=== PATIENT | male | born 1945 | race Caucasian/White ===

== ENCOUNTER 2017-04-20 11:12 | Emergency (ER) | payer OTHER, MEDICARE ==
[~2017-04-20] VITALS: Ht 185.4 cm; Wt 83.9 kg
--- OUTSIDE RECORDS SUMMARY | 2017-04-20 11:19 | XMS REPORT ---
Author Author Amos Craig [facility] Address [address] [place], [place] [id number] Care Team Providers Care Planning Management It Specialist Name Role Phone Amos Craig PCP Unavailable Allergies and Adverse Reactions Name Reaction Notes NO KNOWN DRUG ALLERGIES Plan of Treatment Not available. Medications Active Name Start Date Estimated Completion Date SIG Comments diltiazem HCl Oral capsule, extended release 240 mg take 1 capsule (240 mg) by oral route once daily triamterene-hydrochlorothiazid Oral tablet 37.5-25 mg take 1 tablet by oral route once daily pravastatin Oral tablet 40 mg take 1 tablet (40 mg) by oral route once daily warfarin Oral tablet 4 mg take 1 tablet (4 mg) by oral route once daily niacin Oral tablet 500 mg take 1 tablet (500 mg) by oral route once daily B Complex Oral tablet extended release take 1 tablet by oral route daily Centrum Oral tablet, chewable 3,500-18-0.4 unit-mg-mg chew 1 tablet by oral route daily potassium chloride oral tablet extended release 10 mEq take 1 tablet ( 10 meq) by oral route 2 times per day with food carbidopa-levodopa oral tablet 25-100 mg 01/29/2014 take 1 tablet by oral route once a day at bedtime for 30 days sertraline oral tablet 50 mg 02/25/2014 TAKE ONE & ONE-HALF TABLETS BY MOUTH ONCE DAILY carbidopa-levodopa oral tablet 25-100 mg 02/25/2014 take 1 tablet by oral route once a day at bedtime for 30 days carbidopa-levodopa oral tablet 25-100 mg 03/19/2014 take 1 tablet by oral route once a day at bedtime for 30 days sertraline oral tablet 50 mg 04/03/2014 TAKE ONE & ONE-HALF TABLETS BY MOUTH ONCE DAILY carbidopa-levodopa oral tablet 25-100 mg 04/09/2014 take 1 tablet by oral route once a day at bedtime for 30 days sertraline oral tablet 50 mg 05/02/2014 TAKE ONE & ONE-HALF TABLETS BY MOUTH ONCE DAILY sertraline oral tablet 50 mg 06/04/2014 TAKE ONE & ONE-HALF TABLETS BY MOUTH ONCE DAILY carbidopa-levodopa oral tablet 25-100 mg 06/18/2014 take 1 tablet by oral route once a day at bedtime for 30 days sertraline oral tablet 50 mg 07/03/2014 TAKE ONE & ONE-HALF TABLETS BY MOUTH ONCE DAILY carbidopa-levodopa oral tablet 25-100 mg 08/25/2014 take 1 tablet by oral route once a day at bedtime for 30 days carbidopa-levodopa oral tablet 25-250 mg 09/12/2014 take 1 tablet by oral route once a day (at bedtime) sertraline oral tablet 50 mg 09/28/2014 TAKE ONE & ONE-HALF TABLETS BY MOUTH ONCE DAILY carbidopa-levodopa oral tablet 25-250 mg 11/13/2014 TAKE ONE TABLET BY MOUTH ONCE DAILY AT BEDTIME tramadol oral tablet 50 mg 12/11/2014 take 1 tablet (50 mg) by oral route every 4-6 hours as needed albuterol sulfate inhalation HFA aerosol inhaler 90 mcg/actuation 12/11/2014 inhale 1 - 2 puffs by inhalation route every 6 hours as needed Name Start Date Expiration Date SIG Comments meloxicam oral tablet 15 mg 07/28/2013 10/26/2013 take 1 tablet (15 mg) by oral route once daily for 30 days guaifenesin oral tablet extended release 600 mg 07/28/2013 08/27/2013 take 1 tablet (600 mg) by oral route every 12 hours for 30 days fluticasone nasal spray,suspension 50 mcg/actuation 07/28/2013 spray 2 sprays (100 mcg) in each nostril by intranasal route once daily as needed tizanidine oral tablet 4 mg 08/15/2013 take 1 tablet (4 mg) by oral route at bedtime for 2 weeks carbidopa-levodopa Oral tablet 25-100 mg 01/12/2014 02/11/2014 take 1 tablet by oral route once a day at bedtime for 30 days sertraline oral tablet 50 mg 01/12/2014 02/11/2014 take 1 and 1/2 tablet (75 mg) by oral route once daily for 30 days Discontinued Name Start Date Discontinued Date SIG Comments lisinopril Oral tablet 20 mg 07/28/2013 take 1 tablet (20 mg) by oral route once daily caused fatigue Aleve Oral tablet 220 mg 07/28/2013 take 1 tablet (220 mg) by oral route every 12 hours as needed Changed to Meloxicam Problem List Description Status Onset Atrial Fibrillation Active Back pain Active Hypertension Active Atrial fibrillation with controlled ventricular response Active 12/12/2014 Vital Signs Date Time BP-Sys(mm[Hg] BP-Shahrzad(mm[Hg]) HR(bpm) RR(rpm) Temp WT HT HC BMI BSA BMI Percentile O2 Sat(%) 12/11/2014 3:27:00 PM 135 mmHg 70 mmHg 82 bpm 18 rpm 97.6 F 181 lbs 73 in 23.88 kg/m2 2.06 m2 96 % 09/12/2014 3:54:00 PM 120 mmHg 80 mmHg 97 bpm 20 rpm 97.9 F 183 lbs 73 in 24.1437 kg/m 2.0677 m 91 % 06/16/2014 10:55:00 AM 150 mmHg 90 mmHg 99 bpm 18 rpm 97.4 F 183 lbs 73 in 24.14 kg/m2 2.07 m2 98 % 07/28/2013 9:34:00 AM 142 mmHg 80 mmHg 90 bpm 20 rpm 98.3 F 178 lbs 73 in 23.484 kg/m 2.0393 m 98 % 08/30/2012 10:55:00 AM 128 mmHg 62 mmHg 70 bpm 18 rpm 98.2 F 183 lbs 73 in 24.14 kg/m2 2.07 m2 Social History Name Description Comments Tobacco Former smoker No Alcohol Use History of Procedures Date Ordered Description Order Status 09/18/2010 12:00 AM SPECIMEN HANDLING OFFICE-LAB Reviewed 06/16/2014 12:00 AM COMPLETE CBC W/AUTO DIFF WBC Returned 06/16/2014 12:00 AM COMPREHEN METABOLIC PANEL Returned 06/16/2014 12:00 AM LIPID PANEL Returned 11/15/2010 12:00 AM SPECIMEN HANDLING OFFICE-LAB Reviewed 12/04/2010 12:00 AM SPECIMEN HANDLING OFFICE-LAB Reviewed 03/12/2011 12:00 AM SPECIMEN HANDLING OFFICE-LAB Reviewed Results Summary Data and Description Results 06/17/2014 11:45 AM TRIGLYCERIDES 89.0 mg/dLCHOLESTEROL 170.0 mg/dLHDL 51.0 mg /dLLDL (CALC) 101.0 mg/dLWBC 9.8 RBC 5.03 HGB 16.50 g/dLHCT 47.30 %MCV 94.0 fLMCH 32.80 pgMCHC 34.90 g/dLRDW CV 14.50 %MPV 9.90 fLPLT 244 %NEUT 63.80 %% LYMP 22.90 %%MONO 10.90 %%EOS 2.0 %%BASO 0.40 %#NEUT 6.25 #LYMP 2.25 #MONO 1.07 #EOS 0.20 #BASO 0.04 GLUCOSE 103.0 mg/dLSODIUM 142.0 mmol/LPOTASSIUM 4.40 mmol/ LCHLORIDE 106.0 mmol/LCO2 25.0 mmol/LBUN 16.0 mg/dLCREATININE 1.10 mg/dLSGOT/ AST 23.0 IU/LSGPT/ALT 24.0 IU/LALK PHOS 92.0 IU/LTOTAL PROTEIN 7.80 g/dLALBUMIN 4.30 g/dLTOTAL BILI 0.60 mg/dLCALCIUM 9.90 mg/dLeGFR 60 History Of Immunizations Not available. History of Past Illness Name Date of Onset Comments Atrial Fibrillation Back pain due to"ran over as a child" and a " defect" Hypertension Atrial fibrillation with controlled ventricular response 12/12/2014 DOT Oct 03 2010 12:50PM Laboratory Examination Nov 15 2010 11:46AM DOT Dec 04 2010 9:24AM DOT Mar 12 2011 10:20AM DOT Aug 30 2012 10:57AM Back Pain Jul 28 2013 9:38AM Hypertension Jul 28 2013 9:38AM Allergic Rhinitis Jul 28 2013 9:38AM Left shoulder pain Jun 16 2014 10:57AM Back pain, thoracic Jun 16 2014 10:57AM Screening for ischemic heart disease Jun 16 2014 10:57AM Cardiac arrhythmia Jun 16 2014 10:57AM DOT Sep 12 2014 3:57PM Impacted [employer] Sep 20 2014 12:44PM Back pain Dec 11 2014 3:28PM Hypertension Dec 11 2014 3:28PM Atrial fibrillation with controlled ventricular response Dec 11 2014 3:28PM Payers Insurance Name Company Name Plan Name Plan Number Policy Number Policy Group Number Start Date Medicare Part A Medicare Part A [id number] Friday, 2010 [facility] [id number] Friday, September 12, 2014 [employer] [id number] N/A History of Encounters Visit Date Visit Type Provider 12/11/2014 Office visit Ignacio Soto EVALUATION MANAGER 09/12/2014 Office visit Ignacio Soto EVALUATION MANAGER 09/12/2014 Office visit Ignacio Soto EVALUATION MANAGER 06/16/2014 Office visit Ignacio Soto EVALUATION MANAGER 07/28/2013 Office visit Amos Craig DO 08/30/2012 Office visit Amos Craig DO 03/12/2011 Laboratory Niko Perkins EVALUATION MANAGER 12/04/2010 Laboratory Niko Perkins EVALUATION MANAGER 11/15/2010 Laboratory Niko Perkins EVALUATION MANAGER 09/18/2010 Laboratory Niko Perkins EVALUATION MANAGER
--- OUTSIDE RECORDS SUMMARY | 2017-04-20 11:20 | XMS REPORT ---
Author Author Amos Craig [facility] Address [address] [place], [place] [id number] Care Team Providers Care Video Poker Floorman Name Role Phone Amos Craig PCP Unavailable [...] TABLET BY MOUTH ONCE DAILY AT BEDTIME albuterol sulfate inhalation HFA aerosol inhaler 90 mcg/actuation 12/11/2014 inhale 1 - 2 puffs by inhalation route every 6 hours as needed carbidopa-levodopa oral tablet 25-250 mg 01/22/2015 TAKE ONE TABLET BY MOUTH ONCE DAILY AT BEDTIME tramadol oral tablet 50 mg 01/29/2015 take 1 tablet (50 mg) by oral route every 4-6 hours as needed carbidopa-levodopa oral tablet 25-250 mg 02/05/2015 TAKE ONE TABLET BY MOUTH ONCE DAILY AT BEDTIME Name Start Date Expiration Date SIG Comments [...] Description Status Onset Atrial Fibrillation Active Back Pain Active Hypertension Active Atrial fibrillation with controlled ventricular response Active 12/12/2014 Vital Signs Date Time BP-Sys(mm[Hg] BP-Shahrzad(mm[Hg]) HR(bpm) RR(rpm) Temp WT HT HC BMI BSA BMI Percentile O2 Sat(%) 02/05/2015 9:31:00 AM 120 mmHg 70 mmHg 85 bpm 18 rpm 97.8 F 177 lbs 73 in 23.35 kg/m2 2.03 m2 97 % 12/11/2014 3:27:00 PM 135 mmHg 70 mmHg 82 bpm 18 rpm 97.6 F 181 lbs 73 in 23.8798 kg/m 2.0564 m 96 % 09/12/2014 3:54:00 PM 120 mmHg 80 mmHg 97 bpm 20 rpm 97.9 F 183 lbs 73 in 24.14 kg/m2 2.07 m2 91 % 06/16/2014 10:55:00 AM 150 mmHg 90 mmHg 99 bpm 18 rpm 97.4 F 183 lbs 73 in 24.1437 kg/m 2.0677 m 98 % 07/28/2013 9:34:00 AM 142 mmHg 80 mmHg 90 bpm 20 rpm 98.3 F 178 lbs 73 in 23.48 kg/m2 2.04 m2 98 % 08/30/2012 10:55:00 AM 128 mmHg 62 mmHg 70 bpm 18 rpm 98.2 F 183 lbs 73 in 24.1437 kg/m 2.0677 m Social History Name Description Comments Tobacco Former [...] Date of Onset Comments Atrial Fibrillation Back Pain due to"ran over as a child" and [...] controlled ventricular response Dec 11 2014 3:28PM Lesion of nose Feb 05 2015 9:32AM Payers Insurance Name Company Name Plan Name Plan Number Policy Number Policy Group Number Start Date Medicare Part A Medicare Part A [id number] Friday, 2010 [facility] [id number] Friday, September 12, 2014 [employer] [id number] N/A History of Encounters Visit Date Visit Type Provider 02/05/2015 Office visit Ignacio Soto APRN 12/11/2014 Office visit Ignacio Soto APRN 09/12/2014 Office visit Ignacio Soto APRN 09/12/2014 Office visit Ignacio Soto METAL HANGING HELPER 06/16/2014 Office visit Ignacio Soto METAL HANGING HELPER 07/28/2013 Office visit Amos Craig DO 08/30/2012 Office visit Amos Craig DO 03/12/2011 Laboratory Niko Perkins METAL HANGING HELPER 12/04/2010 Laboratory Niko Perkins METAL HANGING HELPER 11/15/2010 Laboratory Niko Perkins METAL HANGING HELPER 09/18/2010 Laboratory Niko Perkins METAL HANGING HELPER
--- OUTSIDE RECORDS SUMMARY | 2017-04-20 11:20 | XMS REPORT ---
Author Author Ignacio Soto [facility] Address [address] [place], [place] [id number] Care Team Providers Care Tax Form Preparer Name Role Phone Ignacio Soto PCP Allergies and Adverse Reactions Name Reaction Notes NO KNOWN DRUG ALLERGIES Plan of Treatment Not available. Medications Active Name Start Date Estimated Completion Date SIG Comments diltiazem HCl 240 mg oral capsule, extended release take 1 capsule (240 mg) by oral route once daily triamterene-hydrochlorothiazid 37.5-25 mg oral tablet take 1 tablet by oral route once daily pravastatin 40 mg oral tablet take 1 tablet (40 mg) by oral route once daily warfarin 4 mg oral tablet take 1 tablet (4 mg) by oral route once daily niacin 500 mg oral tablet take 1 tablet (500 mg) by oral route once daily B Complex Oral tablet extended release take 1 tablet by oral route daily Centrum 3,500-18-0.4 unit-mg-mg oral tablet,chewable chew 1 tablet by oral route daily potassium chloride 10 mEq oral tablet extended release take 1 tablet ( 10 meq) by oral route 2 times per day with food carbidopa-levodopa 25-100 mg oral tablet 01/29/2014 take 1 tablet by oral route once a day at bedtime for 30 days sertraline 50 mg oral tablet 02/25/2014 TAKE ONE & ONE-HALF TABLETS BY MOUTH ONCE DAILY carbidopa-levodopa 25-100 mg oral tablet 02/25/2014 take 1 tablet by oral route once a day at bedtime for 30 days carbidopa-levodopa 25-100 mg oral tablet 03/19/2014 take 1 tablet by oral route once a day at bedtime for 30 days sertraline 50 mg oral tablet 04/03/2014 TAKE ONE & ONE-HALF TABLETS BY MOUTH ONCE DAILY carbidopa-levodopa 25-100 mg oral tablet 04/09/2014 take 1 tablet by oral route once a day at bedtime for 30 days sertraline 50 mg oral tablet 05/02/2014 TAKE ONE & ONE-HALF TABLETS BY MOUTH ONCE DAILY sertraline 50 mg oral tablet 06/04/2014 TAKE ONE & ONE-HALF TABLETS BY MOUTH ONCE DAILY carbidopa-levodopa 25-100 mg oral tablet 06/18/2014 take 1 tablet by oral route once a day at bedtime for 30 days sertraline 50 mg oral tablet 07/03/2014 TAKE ONE & ONE-HALF TABLETS BY MOUTH ONCE DAILY carbidopa-levodopa 25-100 mg oral tablet 08/25/2014 take 1 tablet by oral route once a day at bedtime for 30 days carbidopa-levodopa 25-250 mg oral tablet 09/12/2014 take 1 tablet by oral route once a day (at bedtime) carbidopa-levodopa 25-250 mg oral tablet 11/13/2014 TAKE ONE TABLET BY MOUTH ONCE DAILY AT BEDTIME albuterol sulfate 90 mcg/actuation inhalation HFA aerosol inhaler 12/11/2014 inhale 1 - 2 puffs by inhalation route every 6 hours as needed carbidopa-levodopa 25-250 mg oral tablet 01/22/2015 TAKE ONE TABLET BY MOUTH ONCE DAILY AT BEDTIME carbidopa-levodopa 25-250 mg oral tablet 02/05/2015 TAKE ONE TABLET BY MOUTH ONCE DAILY AT BEDTIME carbidopa-levodopa 25-250 mg oral tablet 03/12/2015 TAKE ONE TABLET BY MOUTH ONCE DAILY AT BEDTIME carbidopa-levodopa 25-250 mg oral tablet 04/02/2015 TAKE ONE TABLET BY MOUTH ONCE DAILY AT BEDTIME sertraline 50 mg oral tablet 04/02/2015 TAKE ONE & ONE-HALF TABLETS BY MOUTH ONCE DAILY carbidopa-levodopa 25-250 mg oral tablet 04/30/2015 TAKE ONE TABLET BY MOUTH ONCE DAILY AT BEDTIME carbidopa-levodopa 25-250 mg oral tablet 05/21/2015 TAKE ONE TABLET BY MOUTH ONCE DAILY AT BEDTIME carbidopa-levodopa 25-250 mg oral tablet 06/18/2015 TAKE ONE TABLET BY MOUTH ONCE DAILY AT BEDTIME carbidopa-levodopa 25-250 mg oral tablet 08/27/2015 TAKE ONE TABLET BY MOUTH ONCE DAILY AT BEDTIME carbidopa-levodopa 25-250 mg oral tablet 09/24/2015 TAKE ONE TABLET BY MOUTH ONCE DAILY AT BEDTIME sertraline 50 mg oral tablet 10/02/2015 TAKE ONE & ONE-HALF TABLETS BY MOUTH ONCE DAILY carbidopa-levodopa 25-250 mg oral tablet 10/22/2015 TAKE ONE TABLET BY MOUTH ONCE DAILY AT BEDTIME tramadol 50 mg oral tablet 11/09/2015 take 1 tablet (50 mg) by oral route every 4-6 hours as needed Name Start Date Expiration Date SIG Comments meloxicam 15 mg oral tablet 07/28/2013 10/26/2013 take 1 tablet (15 mg) by oral route once daily for 30 days guaifenesin 600 mg oral tablet extended release 07/28/2013 08/27/2013 take 1 tablet (600 mg) by oral route every 12 hours for 30 days fluticasone 50 mcg/actuation nasal spray,suspension 07/28/2013 spray 2 sprays (100 mcg) in each nostril by intranasal route once daily as needed tizanidine 4 mg oral tablet 08/15/2013 take 1 tablet (4 mg) by oral route at bedtime for 2 weeks carbidopa-levodopa 25-100 mg oral tablet 01/12/2014 02/11/2014 take 1 tablet by oral route once a day at bedtime for 30 days sertraline 50 mg oral tablet 01/12/2014 02/11/2014 take 1 and 1/2 tablet (75 mg) by oral route once daily for 30 days Discontinued Name Start Date Discontinued Date SIG Comments lisinopril 20 mg oral tablet 07/28/2013 take 1 tablet (20 mg) by oral route once daily caused fatigue Aleve 220 mg oral tablet 07/28/2013 take 1 tablet (220 mg) by oral route every 12 hours as needed Changed to Meloxicam Problem List Description Status Onset Atrial Fibrillation Active Back Pain Active Hypertension Active Atrial fibrillation with controlled ventricular response Active 12/12/2014 COPD (chronic obstructive pulmonary disease) Active 11/28/2015 Depression Active 11/28/2015 Vital Signs Date Time BP-Sys(mm[Hg] BP-Shahrzad(mm[Hg]) HR(bpm) RR(rpm) Temp WT HT HC BMI BSA BMI Percentile O2 Sat(%) 11/15/2015 8:15:00 AM 150 mmHg 90 mmHg 88 bpm 16 rpm 98.6 F 173 lbs 73 in 22.82 kg/m2 2.01 m2 98 % 02/05/2015 9:31:00 AM 120 mmHg 70 mmHg 85 bpm 18 rpm 97.8 F 177 lbs 73 in 23.3521 kg/m 2.0335 m 97 % 12/11/2014 3:27:00 PM 135 mmHg [...] Returned 06/16/2014 12:00 AM LIPID PANEL Returned 06/16/2014 12:00 AM RADEX SHOULDER COMPLETE MINIMUM 2 VIEWS Returned 06/16/2014 12:00 AM RADEX SPINE THORACIC 2 VIEWS Returned 11/15/2010 12:00 AM SPECIMEN HANDLING OFFICE-LAB [...] g/dLTOTAL BILI 0.60 mg/dLCALCIUM 9.90 mg/dLeGFR 60 09/04/2015 3:10 PM PROTIME 10.80 secsINR 1.0 09/27/2015 6:00 PM PROTIME 32.10 secsINR 2.9 WBC 10.3 RBC 4.74 HGB 15.50 g/ dLHCT 45.0 %MCV 95.0 fLMCH 32.70 pgMCHC 34.40 g/dLRDW CV 13.90 %MPV 9.70 fLPLT 230 GLUCOSE 67.0 mg/dLSODIUM 141.0 mmol/LPOTASSIUM 3.50 mmol/LCHLORIDE 105.0 mmol/LCO2 25.0 mmol/LBUN 18.0 mg/dLCREATININE 0.90 mg/dLSGOT/AST 21.0 IU/LSGPT/ ALT 21.0 IU/LALK PHOS 100.0 IU/LTOTAL PROTEIN 7.10 g/dLALBUMIN 4.10 g/dLTOTAL BILI 0.40 mg/dLCALCIUM 9.10 mg/dLeGFR >60 mL/min/1.73m History Of Immunizations Not available. History of Past Illness Name Date of Onset Comments Atrial Fibrillation Back Pain due to"ran over as a child" and a " defect" Hypertension Atrial fibrillation with controlled ventricular response 12/12/2014 DOT Oct 03 2010 12:50PM COPD (chronic obstructive pulmonary disease) 11/28/2015 Depression 11/28/2015 Laboratory Examination Nov 15 2010 11:46AM DOT [...] 10:57AM DOT Sep 12 2014 3:57PM Impacted Steven Sep 20 2014 12:44PM Back pain Dec 11 2014 3:28PM Hypertension Dec 11 2014 3:28PM Atrial fibrillation with controlled ventricular response Dec 11 2014 3:28PM Lesion of nose Feb 05 2015 9:32AM Atrial fibrillation with controlled ventricular response Nov 15 2015 8:17AM Back Pain Nov 15 2015 8:17AM Hypertension Nov 15 2015 8:17AM Dry skin Nov 15 2015 8:17AM COPD (chronic obstructive pulmonary disease) Nov 15 2015 8:17AM Depression Nov 15 2015 8:17AM Payers Insurance Name Company Name Plan Name Plan Number Policy Number Policy Group Number Start Date Medicare Part A Medicare [facility] [id number] N/A [employer] [id number] N/A Medicare Part A Medicare Part A [id number] Friday, 2010 [facility] [id number] Friday, September 12, 2014 Medicare Part A Medicare - Lab/Xray [id number] Friday, January 01, 2010 History of Encounters Visit Date Visit Type Provider 11/15/2015 Office visit Ignacio Soto PRODUCTION MANAGER 02/05/2015 Office visit Ignacio Soto PRODUCTION MANAGER 12/11/2014 Office visit Ignacio Soto PRODUCTION MANAGER 09/12/2014 Office visit Ignacio Soto PRODUCTION MANAGER 09/12/2014 Office visit Ignacio Soto PRODUCTION MANAGER 06/16/2014 Office visit Ignacio Soto PRODUCTION MANAGER 07/28/2013 Office visit Amos Craig DO 08/30/2012 Office visit Amos Craig DO 03/12/2011 Laboratory Niko Perkins PRODUCTION MANAGER 12/04/2010 Laboratory Niko Perkins PRODUCTION MANAGER 11/15/2010 Laboratory Niko Perkins PRODUCTION MANAGER 09/18/2010 Laboratory Niko Perkins PRODUCTION MANAGER
--- OUTSIDE RECORDS SUMMARY | 2017-04-20 11:20 | XMS REPORT ---
Author Author Ignacio Soto [facility] Address [address] [place], [place] [id number] Care Team Providers Care Terminal Carman Name Role Phone Ignacio Soto PCP Allergies [...] AT BEDTIME carbidopa-levodopa 25-250 mg oral tablet 10/22/2015 TAKE ONE TABLET BY MOUTH ONCE DAILY AT BEDTIME sertraline 50 mg oral tablet 01/15/2016 TAKE ONE & ONE-HALF TABLETS BY MOUTH ONCE DAILY sertraline 50 mg oral tablet 04/08/2016 TAKE ONE & ONE-HALF TABLETS BY MOUTH ONCE DAILY carbidopa-levodopa 25-250 mg oral tablet 05/12/2016 TAKE ONE TABLET BY MOUTH ONCE DAILY AT BEDTIME hydrocodone-acetaminophen 5-325 mg oral tablet 05/16/2016 take 1 tablet by oral route every 8 hours as needed Name Start Date Expiration [...] oral route once daily for 30 days tramadol 50 mg oral tablet 04/17/2016 take 1 tablet (50 mg) by oral route every 4-6 hours as needed Discontinued Name Start Date Discontinued Date SIG [...] HC BMI BSA BMI Percentile O2 Sat(%) 05/16/2016 9:18:00 AM 140 mmHg 85 mmHg 75 bpm 20 rpm 96.7 F 175 lbs 73 in 23.09 kg/m2 2.02 m2 96 % 11/15/2015 8:15:00 AM 150 mmHg 90 mmHg 88 bpm 16 rpm 98.6 F 173 lbs 73 in 22.8244 kg/m 2.0104 m 98 % 02/05/2015 9:31:00 AM 120 mmHg [...] 2015 8:17AM Depression Nov 15 2015 8:17AM Atrial fibrillation with controlled ventricular response May 16 2016 9:21AM Chronic midline low back pain without sciatica May 16 2016 9:21AM Chronic obstructive pulmonary disease, unspecified COPD type May 16 2016 9: 21AM Payers Insurance Name Company Name Plan Name Plan Number Policy Number Policy Group Number Start Date Medicare Part A Medicare RHC [id number] N/A [employer] [id number] N/A Medicare Part A Medicare Part A [id number] Friday, 2010 [facility] Occupational Medicine [id number] Friday, September 12, 2014 Medicare Part A Medicare - Lab/Xray [id number] Friday, January 01, 2010 History of Encounters Visit Date Visit Type Provider 05/16/2016 Office visit Ignacio Soto APRN 11/15/2015 Office visit Ignacio Soto APRN 02/05/2015 Office visit Ignacio Soto APRN 12/11/2014 Office visit Ignacio Soto APRN 09/12/2014 Office visit Ignacio Soto APRN 09/12/2014 Office visit Ignacio Soto RANCH HAND SUPERVISOR 06/16/2014 Office visit Ignacio Soto RANCH HAND SUPERVISOR 07/28/2013 Office visit Amos Craig DO 08/30/2012 Office visit Amos Craig DO 03/12/2011 Laboratory Niko Perkins RANCH HAND SUPERVISOR 12/04/2010 Laboratory Niko Perkins RANCH HAND SUPERVISOR 11/15/2010 Laboratory Niko Perkins RANCH HAND SUPERVISOR 09/18/2010 Laboratory Niko Perkins RANCH HAND SUPERVISOR
--- OUTSIDE RECORDS SUMMARY | 2017-04-20 11:21 | XMS REPORT ---
Author Author Ignacio Soto [facility] Address [address] [place], [place] [address] Care Team Providers Care Claim Administrator Name Role Phone Ignacio Soto PCP Ignacio Soto PreferredProvider Allergies and Adverse Reactions Name Reaction Notes [...] ONCE DAILY sertraline 50 mg oral tablet 06/05/2016 TAKE ONE & ONE-HALF TABLETS BY MOUTH ONCE DAILY carbidopa-levodopa 25-250 mg oral tablet 07/29/2016 TAKE ONE TABLET BY MOUTH ONCE DAILY AT BEDTIME carbidopa-levodopa 25-250 mg oral tablet 10/20/2016 TAKE ONE TABLET BY MOUTH ONCE DAILY AT BEDTIME sertraline 50 mg oral tablet 11/12/2016 TAKE ONE & ONE-HALF TABLETS BY MOUTH ONCE DAILY hydrocodone-acetaminophen 5-325 mg oral tablet 11/14/2016 take 1 tablet by oral route every [...] HC BMI BSA BMI Percentile O2 Sat(%) 11/17/2016 10:06:00 AM 140 mmHg 90 mmHg 76 bpm 18 rpm 96.8 F 174 lbs 73 in 22.96 kg/m2 2.02 m2 96 % 09/15/2016 1:48:00 PM 140 mmHg 80 mmHg 68 bpm 16 rpm 96.7 F 173 lbs 73 in 22.8244 kg/m 2.0104 m 96 % 05/16/2016 9:18:00 AM 140 mmHg 85 mmHg [...] of Procedures Date Ordered Description Order Status 09/26/2016 12:00 AM DOT Physical w UA Reviewed 09/18/2010 12:00 AM SPECIMEN HANDLING OFFICE-LAB Reviewed 06/16/2014 12:00 AM COMPLETE CBC W/AUTO DIFF WBC Reviewed 06/16/2014 12:00 AM COMPREHEN METABOLIC PANEL Reviewed 06/16/2014 12:00 AM LIPID PANEL Reviewed 06/16/2014 12:00 AM RADEX SHOULDER COMPLETE MINIMUM 2 VIEWS Reviewed 06/16/2014 12:00 AM RADEX SPINE THORACIC 2 VIEWS Reviewed 11/15/2010 12:00 AM SPECIMEN HANDLING OFFICE-LAB Reviewed 09/12/2014 12:00 AM DOT Physical w UA Reviewed 09/20/2014 12:00 AM REMOVE IMPACTED EAR WAX UNI Reviewed 12/04/2010 12:00 AM SPECIMEN HANDLING OFFICE-LAB Reviewed 02/05/2015 12:00 AM Dermatology Consult Reviewed 03/12/2011 12:00 AM SPECIMEN HANDLING OFFICE-LAB Reviewed Results Summary Data and Description Results 06/17/2014 11:45 AM TRIGLYCERIDES 89.0 mg/dLCHOLESTEROL 170.0 mg/dLHDL 51.0 mg /dLTOT CHOL/HDL 3.3 LDL (CALC) 101.0 mg/dLWBC 9.8 RBC 5.03 HGB 16.50 g/dLHCT 47.30 %MCV 94.0 fLMCH 32.80 pgMCHC 34.90 g/dLRDW SD 50 RDW CV 14.50 %MPV 9.90 fLPLT 244 NRBC# 0.00 NRBC% 0.0 %NEUT 63.80 %%LYMP 22.90 %%MONO 10.90 %%EOS 2.0 % %BASO 0.40 %#NEUT 6.25 #LYMP 2.25 #MONO 1.07 #EOS 0.20 #BASO 0.04 MANUAL DIFF NOT IND GLUCOSE 103.0 mg/dLSODIUM 142.0 mmol/LPOTASSIUM 4.40 mmol/LCHLORIDE 106.0 mmol/LCO2 25.0 mmol/LBUN 16.0 mg/dLCREATININE 1.10 mg/dLSGOT/AST 23.0 IU/ LSGPT/ALT 24.0 IU/LALK PHOS 92.0 IU/LTOTAL PROTEIN 7.80 g/dLALBUMIN 4.30 g/ dLTOTAL BILI 0.60 mg/dLCALCIUM 9.90 mg/dLAGE 69 GFR NonAA 66 GFR AA 80 eGFR 60 eGFR AA* 60 09/04/2015 3:10 PM PROTIME 10.80 secsINR 1.0 09/27/2015 6:00 PM PROTIME 32.10 secsINR 2.9 WBC 10.3 RBC 4.74 HGB 15.50 g/ dLHCT 45.0 %MCV 95.0 fLMCH 32.70 pgMCHC 34.40 g/dLRDW SD 48 RDW CV 13.90 %MPV 9.70 fLPLT 230 NRBC# 0.00 NRBC% 0.0 GLUCOSE 67.0 mg/dLSODIUM 141.0 mmol/ LPOTASSIUM 3.50 mmol/LCHLORIDE 105.0 mmol/LCO2 25.0 mmol/LBUN 18.0 mg/ dLCREATININE 0.90 mg/dLSGOT/AST 21.0 IU/LSGPT/ALT 21.0 IU/LALK PHOS 100.0 IU/ LTOTAL PROTEIN 7.10 g/dLALBUMIN 4.10 g/dLTOTAL BILI 0.40 mg/dLCALCIUM 9.10 mg/ dLAGE 70 GFR NonAA 83 GFR AA 101 eGFR >60 mL/min/1.73meGFR AA* >60 09/15/2016 10:40 AM Color Ur yellow Glucose SerPl-mCnc 0.0 mg/dLHgb Ur Ql Strip 0 Prot Ur Ql Strip 0 WBC Est Ur Ql Strip 0 History Of Immunizations Not available. 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 Sep 15 2016 1:55PM Payers Insurance Name Company Name Plan Name Plan Number Policy Number Policy Group Number Start Date Medicare RHC Medicare RHC [id number] N/A [employer] [id number] N/A [employer] [id number] N/A Medicare Part A Medicare Part A [id number] Friday, 2010 [facility] Med Occupational Medicine [id number] Friday, September 12, 2014 Medicare Part A Medicare - Lab/Xray [id number] Friday, January 01, 2010 History of Encounters Visit Date Visit Type Provider 11/17/2016 Office visit Ignacio Soto SPOOL SALVAGER 09/15/2016 Office visit Ignacio Soto SPOOL SALVAGER 05/16/2016 Office visit Ignacio Soto SPOOL SALVAGER 11/15/2015 Office visit Ignacio Soto SPOOL SALVAGER 02/05/2015 Office visit Ignacio Soto SPOOL SALVAGER 12/11/2014 Office visit Ignacio Soto SPOOL SALVAGER 09/12/2014 Office visit Ignacio Soto SPOOL SALVAGER 09/12/2014 Office visit Ignacio Soto SPOOL SALVAGER 06/16/2014 Office visit Ignacio Soto SPOOL SALVAGER 07/28/2013 Office visit Amos Craig DO 08/30/2012 Office visit Amos Craig DO 03/12/2011 Laboratory Niko Perkins SPOOL SALVAGER 12/04/2010 Laboratory Niko Perkins SPOOL SALVAGER 11/15/2010 Laboratory Niko Perkins SPOOL SALVAGER 09/18/2010 Laboratory Niko Perkins SPOOL SALVAGER
--- OUTSIDE RECORDS SUMMARY | 2017-04-20 11:22 | XMS REPORT ---
Author Author Ignacio Soto [facility] Address [address] [place], [place] [address] Care Team Providers Care Auction Block Clerk Name Role Phone Ignacio Soto PCP Ignacio [...] AT BEDTIME hydrocodone-acetaminophen 5-325 mg oral tablet 08/29/2016 take 1 tablet by oral route every [...] HC BMI BSA BMI Percentile O2 Sat(%) 09/15/2016 1:48:00 PM 140 mmHg 80 mmHg 68 bpm 16 rpm 96.7 F 173 lbs 73 in 22.82 kg/m2 2.01 m2 96 % 05/16/2016 9:18:00 AM 140 mmHg 85 mmHg 75 bpm 20 rpm 96.7 F 175 lbs 73 in 23.0882 kg/m 2.022 m 96 % 11/15/2015 8:15:00 AM 150 mmHg [...] Number Start Date Medicare RHC Medicare RHC [id number] N/A [employer] [id number] N/A [employer] [id number] N/A Medicare Part A Medicare Part A [id number] Friday, 2010 [facility] Med Occupational Medicine [id number] Friday, September 12, 2014 Medicare Part A Medicare - Lab/Xray [id number] Friday, January 01, 2010 History of Encounters Visit Date Visit Type Provider 09/15/2016 Office visit Ignacio Soto APRN 05/16/2016 Office visit Ignacio Soto APRN 11/15/2015 Office visit Ignacio Soto CONSUMER LENDER 02/05/2015 Office visit Ignacio Soto CONSUMER LENDER 12/11/2014 Office visit Ignacio Soto APRN 09/12/2014 Office visit Ignacio Soto APRN 09/12/2014 Office visit Ignacio Soto CONSUMER LENDER 06/16/2014 Office visit Ignacio Soto CONSUMER LENDER 07/28/2013 Office visit Amos Craig DO 08/30/2012 Office visit Amos Craig DO 03/12/2011 Laboratory Niko Perkins CONSUMER LENDER 12/04/2010 Laboratory Niko Perkins CONSUMER LENDER 11/15/2010 Laboratory Niko Perkins CONSUMER LENDER 09/18/2010 Laboratory Niko Perkins CONSUMER LENDER
--- OUTSIDE RECORDS SUMMARY | 2017-04-20 11:22 | XMS REPORT ---
Author Author Ignacio Soto [facility] Address [address] [place], [place] [id number] Care Team Providers Care Anesthesia Attending Name Role Phone Ignacio Soto PCP Ignacio [...] driving license) exam Sep 15 2016 1:55PM Atrial fibrillation with controlled ventricular response Nov 17 2016 10:08AM Chronic obstructive pulmonary disease, unspecified COPD type Nov 17 2016 10: 08AM Moderate episode of recurrent major depressive disorder Nov 17 2016 10:08AM Low back pain Nov 17 2016 10:08AM Other chronic pain Nov 17 2016 10:08AM Payers Insurance Name Company Name Plan Name Plan Number Policy Number Policy Group Number Start Date Medicare RHC Medicare RHC [id number] N/A [employer] [id number] N/A [employer] [id number] N/A Medicare Part A Medicare Part A [id number] Friday, 2010 [facility] Med Occupational Medicine [id number] Friday, September 12, 2014 Medicare Part A Medicare - Lab/Xray [id number] Friday, January 01, 2010 History of Encounters Visit Date Visit Type Provider 11/17/2016 Office visit Ignacio Soto APRN 09/15/2016 Office visit Ignacio Soto STRIPPER OPAQUER 05/16/2016 Office visit Ignacio Soto STRIPPER OPAQUER 11/15/2015 Office visit Ignacio Soto STRIPPER OPAQUER 02/05/2015 Office visit Ignacio Soto APRN 12/11/2014 Office visit Ignacio Soto APRN 09/12/2014 Office visit Ignacio Soto APRN 09/12/2014 Office visit Ignacio Soto STRIPPER OPAQUER 06/16/2014 Office visit Ignacio Soto STRIPPER OPAQUER 07/28/2013 Office visit Amos Craig DO 08/30/2012 Office visit Amos Craig DO 03/12/2011 Laboratory Niko Perkins APRN 12/04/2010 Laboratory Niko Perkins STRIPPER OPAQUER 11/15/2010 Laboratory Niko Perkins STRIPPER OPAQUER 09/18/2010 Laboratory Niko Perkins APRN
[2017-04-20] MEDS ORDERED: WARF5TAB PO (11:28)
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
[2017-04-20 11:40] LABS: BASOPHILS % (AUTO) 0 % (0-10); EOSINOPHILS # (AUTO) 0.1 10^3/uL (0.0-0.3); EOSINOPHILS % (AUTO) 0 % (0-10); LYMPHOCYTES # (AUTO) 1.8 X 10^3 (1.0-4.0); LYMPHOCYTES % (AUTO) 11 % (12-44); MEAN CORPUSCULAR HEMOGLOBIN 32 PG (25-34); MEAN CORPUSCULAR HGB CONC 35 G/DL (32-36); MEAN CORPUSCULAR VOLUME 93 FL (80-99); MEAN PLATELET VOLUME 9.4 FL (7.4-10.4); MONOCYTES # (AUTO) 1.9 X 10^3 (0.0-1.0); MONOCYTES % (AUTO) 11 % (0-12); NEUTROPHILS % (AUTO) 77 % (42-75); PLATELET COUNT 197 10^3/uL (130-400); RED BLOOD COUNT 4.48 10^6/uL (4.35-5.85); RED CELL DISTRIBUTION WIDTH 14.5 % (10.0-14.5); WHITE BLOOD COUNT 16.8 10^3/uL (4.3-11.0)
[2017-04-20] MEDS ORDERED: IOHEXOL 350 MG/ML 100 ML (OMNIPAQUE 350) VIAL IV ONE (12:00)
[2017-04-20] MEDS ORDERED: NS 100 ML (IVPB) BAG IV ONE (12:00)
[2017-04-20 12:01] LABS: ANION GAP 14 MMOL/L (5-14); BLOOD UREA NITROGEN 18 MG/DL (7-18); BUN/CREATININE RATIO 20; CALCIUM 9.1 MG/DL (8.5-10.1); CARBON DIOXIDE 21 MMOL/L (21-32); CHLORIDE 103 MMOL/L (98-107); CREATININE SERUM 0.88 MG/DL (0.60-1.30); GFR ESTIMATED > 60; GLUCOSE 100 MG/DL (70-105); POTASSIUM 3.3 MMOL/L (3.6-5.0); SODIUM 138 MMOL/L (135-145)
--- NOTE | 2017-04-20 12:03 | Diagnostic Imaging Report ---
Portable upright radiograph of the chest. INDICATION: Injury. FINDINGS: The lungs are hyperinflated with mild prominence of the interstitial markings which are likely chronic. Element of slight vascular congestion is also suspected. No focal infiltrate. The heart size is mildly enlarged. No effusion or pneumothorax. Mediastinum and jovan appear unremarkable. IMPRESSION: COPD. Mild cardiomegaly with slight pulmonary vascular congestion. Dictated by: Dictated on workstation # [id number]
[2017-04-20 12:26] LABS: BASOPHILS % (MANUAL) 1 %; LYMPHOCYTES % (MANUAL) 10 %; NEUTROPHILS % (MANUAL) 82 %
--- NOTE | 2017-04-20 12:36 | Diagnostic Imaging Report ---
PROCEDURE: CT chest with contrast only. TECHNIQUE: Multiple contiguous axial images were obtained through the chest after administration of intravenous contrast. INDICATION: Injury. FINDINGS: There is advanced emphysema worst in the upper lobes. There is a masslike consolidation measuring 2.7 x 1.3 x 3.0 cm seen in the left lower lobe abutting the diaphragm. Its morphology is suggestive of possible atelectasis or scarring although neoplasm is possible. No prior studies are available for comparison. The mediastinum demonstrates no mass or hemorrhage. No significantly enlarged lymph node seen. No hilar or axillary lymphadenopathy. The heart size is normal. No pericardial or pleural effusion. The osseous structures appear grossly unremarkable. IMPRESSION: 1. Advanced emphysema. 2. There is a 3-cm masslike consolidation in the left lung base. Etiology is uncertain. Although atelectasis and scarring is possible, neoplasm is not ruled out. Further evaluation with PET/CT is suggested. Findings were discussed with Deyvi Ruth APRN, SUZANNE, who is taking care of the patient at time of dictation. Dictated by: Dictated on workstation # [id number]
[2017-04-20] MEDS ORDERED: PRD20T PO (12:37)
[2017-04-20] MEDS ORDERED: CEFD300C3 PO (12:37)
[2017-04-20 12:45] VITALS: BP 137/84
== END 2017-04-20 12:45 | disposition home or self-care (01) ==
LOC: ER 11:15
DX: S20.219A Contusion of unspecified front wall of thorax, initial encounter (principal); J44.1 Chronic obstructive pulmonary disease with (acute) exacerbation; R91.8 Other nonspecific abnormal finding of lung field; I48.91 Unspecified atrial fibrillation; F17.200 Nicotine dependence, unspecified, uncomplicated; Z79.01 Long term (current) use of anticoagulants; W20.8XXA Other cause of strike by thrown, projected or falling object, initial encounter
CPT/HCPCS: 36415; 71010; 71260; 80048; 85007; 85027

== ENCOUNTER → 2017-06-30 | Outpatient (CLI) | payer OTHER, MEDICARE ==
[~2017-06-30] MED LIST: CEFD300C3 PO; PRD20T PO; WARF5TAB PO
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
== END ==
LOC: RAD 15:44
DX: R10.11 Right upper quadrant pain (principal); V89.9XXA Person injured in unspecified vehicle accident, initial encounter
CPT/HCPCS: 74176

== ENCOUNTER 2018-06-30 09:43 | Emergency (ER) | payer OTHER, MEDICARE ==
[~2018-06-30] VITALS: Ht 182.9 cm; Wt 72.6 kg
--- NOTE | 2018-06-30 09:58 | ED Integumentary General ---
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 He is on warfarin for atrial fibrillation. He is not having any significant pain nor is he taking anything for this morning. He says he's had a tetanus shot within the last 5 years. He has full movement of his hand and good sensation. His significant other has requested that Dr. Ballesteros, come to the ER and see the patient. Allergies and Home Medications Allergies Coded Allergies: No Allergy Information Available (Unverified , 04/20/17) Home Medications Warfarin Sodium 5 Mg Tablet, 5 MG PO DAILY, (Reported) Patient Home Medication List Home Medication List Reviewed: Yes Review of Systems Review of Systems Constitutional: No chills, No diaphoresis EENTM: No ear discharge, No ear pain Respiratory: No cough, No short of breath Cardiovascular: No chest pain, No edema Gastrointestinal: No abdominal pain, No nausea Genitourinary: No discharge, No dysuria Past Qhahcro-Pshkye-Buqmlm Hx Patient Social History Alcohol Use: Denies Use Recreational Drug Use: No Smoking Status: Never a Smoker Recent Hopitalizations: No Past Medical History Cardiac: Yes Atrial Fibrillation Neurological: No Genitourinary: No Gastrointestinal: No Musculoskeletal: No Endocrine: No HEENT: No Cancer: No Psychosocial: No Blood Disorders: No Physical Exam Vital Signs Vital Signs - First Documented 06/30/18 09:52 Temp 97.0 Pulse 78 Resp 18 B/P (MAP) 148/87 (107) Pulse Ox 97 Capillary Refill : General Appearance: WD/WN, no apparent distress HEENT: PERRL/EOMI, pharynx normal Cardiovascular: normal peripheral pulses, no edema Respiratory: no respiratory distress, no accessory muscle use Extremities: normal range of motion, normal capillary refill Neurologic/Psychiatric: alert, normal mood/affect, oriented x 3 Skin: other (abrasions down to the dermis about 3 x 4 cm rough patch over the distal dorsum of the right forearm. There is an 4 cm laceration to the subcutaneous exposing intact blood vessel. Nearly hemostatic.) Progress/Results/Core Measures Results/Orders My Orders Orders - JL ROJAS Lidocaine/Epi 2% 1:100,000 (Xylocaine/Ep (06/30/18 10:00) Vital Signs/I&O 06/30/18 09:52 Temp 97.0 Pulse 78 Resp 18 B/P (MAP) 148/87 (107) Pulse Ox 97 Progress Progress Note #1: Time: 09:57 Progress Note Put some lidocaine around the wound and then reassess his distal function and clean up the wound. At this time but does not seem to be any loss of function. Progress Note #2: Time: 10:[address] Balelsteros came on after we injected the site with 2% lidocaine with epinephrine and stitched the wound up. He will provide scripts and discharge teaching as well as follow-up. See Dr. Ballesteros's note for procedure. Departure Impression Primary Impression: Laceration Additional Impression: Abrasion Disposition: 01 HOME, SELF-CARE Condition: Improved Departure-Patient Inst. Decision time for Depature: 10:27 Referrals: NO,LOCAL PHYSICIAN (PCP/Family) Primary Care Physician Patient Instructions: Laceration Repair With Stitches (DC) Add. Discharge Instructions: Keep the wound clean with regular soap and water and follow discharge instructions per Dr. Ballesteros. All discharge instructions reviewed with patient and/or family. Voiced understanding. JL ROJAS Jun 30, 2018 09:58
[2018-06-30] MEDS ORDERED: LIDOCAINE/EPI 2% 1:100,00 (XYLOCAINE) 20 ML VIAL INJ ONE (10:00)
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
[2018-06-30 10:45] VITALS: BP 135/87
--- NOTE | 2018-06-30 15:29 | CONSULTATION REPORT ---
DATE OF SERVICE: 06/30/2018 ATTENDING PRIMARY CARE PHYSICIAN: Dr. Donis Soto in [place], [place]. The patient is a 73-year-old male who was brought in by family member for laceration sustained of the right wrist. He was working with a hitch to a trailer, which accidentally slipped and caught the dorsal aspect of the right wrist causing a significant laceration. This was during work. Upon examination, there is full thickness laceration with a size encompassing approximately 5 cm. There is also exposed vein and the fascia overlying the flexor muscle group. He has full function of his hand and digits as well as no neurologic deficit. He is otherwise doing well and he has adequate pain control. PAST MEDICAL HISTORY: Atrial fibrillation, hypertension, gastroesophageal reflux disease. PAST SURGICAL HISTORY: Bilateral cataract surgery. ALLERGIES: No known drug allergies. MEDICATIONS: Prevacid 30 mg daily, Coumadin daily, lisinopril daily, albuterol p.r.n. SOCIAL HISTORY: Positive smoke 50 pack years. Negative alcohol. FAMILY HISTORY: Sister, lung cancer. Father, lymphoma. REVIEW OF SYSTEMS: Well-nourished male in no acute distress. He is not experiencing any shortness of breath or difficulty breathing. No chest pain, palpitations, diaphoresis. No nausea, vomiting. No diarrhea, constipation. No fever, chills. No recent inadvertent weight loss. All other review of systems negative. PHYSICAL EXAMINATION: CHEST: A few scattered rales and expiratory wheezes bilaterally. HEART: Regular, no murmurs. EXTREMITIES: No lower extremity edema. Negative Homans sign. HEENT: No scleral icterus. NECK: No cervical lymphadenopathy. ABDOMEN: Soft, nontender, nondistended. SKIN: Along the dorsal aspect of the right wrist is a full thickness laceration, which is oblique approximately 5 cm in length with some surrounding excoriation of skin; however, superficial. There is an exposed superficial vein as well as exposed fascia overlying the extensor muscle group identified. He does not have any focal deficits. He has full motor function. ASSESSMENT AND PLAN: A 73-year-old male with full thickness laceration of the right wrist, approximately 5 cm in greatest dimension. He has full motor and no neurologic deficit. We will proceed with irrigation and debridement of any devitalized skin as well as full thickness closure of the skin using interrupted nonabsorbable sutures. We will instruct him to keep the area clean and dry and change dressings initially on a b.i.d. basis, however less if there is less drainage. He is also instructed to do no heavy lifting or exertion for the next two weeks and to keep the areas clean and dry as possible. We will also have him take Bactrim DS b.i.d. for the next 7 days and have him follow up in the office for reevaluation as well as suture removal. Job ID: [id number] DocumentID: [id number] Dictated Date: 06/30/2018 14:56:23 Wax Ball Molder Date: 06/30/2018 15:29:10 Dictated By: MARYLU CARDENAS MD
--- NOTE | 2018-07-01 00:34 | OPERATIVE REPORT ---
DATE OF SERVICE: 06/30/2018 ATTENDING PRIMARY CARE PHYSICIAN: Dr. Donis Soto in [place], [place]. PREOPERATIVE DIAGNOSIS: Full-thickness laceration dorsal aspect of the right wrist 5 cm in size. POSTOPERATIVE DIAGNOSIS: Full-thickness laceration dorsal aspect of the right wrist 5 cm in size. PROCEDURE: Debridement and simple closure of full thickness skin laceration right dorsal wrist 5 cm in size. SURGEON: Marylu Cardenas MD ANESTHESIA: Local. ESTIMATED BLOOD LOSS: Minimal. FINDINGS: Exposed superficial vein as well as fascia overlying the extensor muscle group. There are no neurologic deficits as well as no motor deficits. DISPOSITION: The patient tolerated the procedure well. INDICATIONS: The patient is a 73-year-old male who was at work tried to place a hitch, which slipped and caught the dorsal aspect of his right wrist causing full thickness laceration as well as significant bleeding. He was brought by staff and family member to the Emergency Department for evaluation. Upon evaluation, he does have a full thickness laceration in an oblique manner along the dorsal aspect of the right wrist 5 cm in size with exposed superficial vein and the fascia overlying the extensor muscle group; however, he does not have any neurologic deficit as well as no motor deficit. DESCRIPTION OF PROCEDURE: The wound was then irrigated with sterile saline and skin edges anesthetized using a 1% lidocaine with epinephrine. The devitalized skin was then debrided using sharp dissecting scissors. Good hemostasis was observed and the skin and subcutaneous tissue were then reapproximated with interrupted 4-0 Prolene sutures. The wound was then cleaned and covered with sterile gauze, followed by a 2-inch Julius wrap from the hand to the elbow. The patient tolerated the procedure well. We will recommend to keep the area clean and dry, and apply gauze dressing on a b.i.d. basis and then last once there is minimal drainage. We will also have him do no heavy lifting or exertion for the next 2 weeks and then increase activity as tolerated. We will have him follow up in the office in approximately 10 days to reevaluate the wound as well as to remove the sutures. Job ID: [id number] DocumentID: [id number] Dictated Date: 06/30/2018 14:59:47 Business Manager Date: 07/01/2018 00:33:32 Dictated By: MARYLU CARDENAS MD
== END 2018-06-30 10:45 | disposition home or self-care (01) ==
LOC: EDUNIT# 09:43 → ER 09:44
DX: S51.811A Laceration without foreign body of right forearm, initial encounter (principal); I48.91 Unspecified atrial fibrillation; Z79.01 Long term (current) use of anticoagulants; W26.8XXA Contact with other sharp object(s), not elsewhere classified, initial encounter
CPT/HCPCS: 12002